=== PATIENT | male | born 1995 ===

== ENCOUNTER 2017-04-12 08:34 | Emergency (ER) | payer BC ==
[2017-04-12] MEDS ORDERED: Ibuprofen 800 MG Tab PO ONE (08:45)
--- NOTE | 2017-04-12 08:58 | EDM.PDOC ---
ED HPI GENERAL MEDICAL PROBLEM - General Chief Complaint: Lower Extremity Injury/Pain Stated Complaint: LEFT ANKLE PAIN FROM FALL Time Seen by Provider: 04/12/17 08:35 Source of Information: Reports: Patient History Limitations: Reports: No Limitations - History of Present Illness INITIAL COMMENTS - FREE TEXT/NARRATIVE: History of present illness: []Patient twisted his ankle at 2 AM in the morning with pain on the lateral side of his ankle. He denies any other injuries. Review of systems: As per history of present illness and below otherwise all systems reviewed and negative. Past medical history: As per history of present illness and as reviewed below otherwise noncontributory. Surgical history: As per history of present illness and as reviewed below otherwise noncontributory. Social history: No reported history of drug or alcohol abuse. Family history: As per history of present illness and as reviewed below otherwise noncontributory. Physical exam: General: Well developed, well nourished in NAD HEENT: Atraumatic, normocephalic, pupils reactive, negative for conjunctival pallor or scleral icterus, mucous membranes moist, throat clear, neck supple, nontender, trachea midline. Lungs: Clear to auscultation, breath sounds equal bilaterally, chest nontender. Heart: S1S2, regular, negative for clicks, rubs, or JVD. Abdomen: Soft, nondistended, nontender. Negative for masses or hepatosplenomegaly. Negative for costovertebral tenderness. Pelvis: Stable nontender. Genitourinary: Deferred. Rectal: Deferred. Extremities: Left ankle with swelling over the lateral malleolus that is tender to palpation with minimal range of motion no foot tenderness. Distal pulses are palpable sensations intact, negative for cords or calf pain. Neurovascular unremarkable. Neuro: Awake, alert, oriented. Cranial nerves II through XII unremarkable. Cerebellum unremarkable. Motor and sensory unremarkable throughout. Exam nonfocal. Diagnostics: []X-rays show fibula fracture Therapeutics: [] Impression: []Left fibular fracture Plan: []Ice, Motrin, elevate, tramadol for pain Follow-up orthopedics next available date Definitive disposition and diagnosis as appropriate pending reevaluation and review of above. Left Ankle Pain Score (Numeric/FACES): 5 - Related Data Allergies Allergy/AdvReac Type Severity Reaction Status Date / Time No Known Allergies Allergy Verified 04/12/17 08:49 Home Meds: Home Meds traMADol [Ultram] 50 mg PO Q8H PRN #16 tablet 04/12/17 [Rx] Past Medical History Other Gastrointestinal History: hernias with repair Genitourinary History: Reports: Renal Calculus Social & Family History - Family History Family Medical History: Noncontributory - Tobacco Use Years of Tobacco use: 10 Packs/Tins Daily: 1 - Caffeine Use Caffeine Use: Reports: Soda - Recreational Drug Use Recreational Drug Use: No Review of Systems - Review of Systems Review Of Systems: See Below (See history of present illness) ED EXAM, GENERAL - Physical Exam Exam: See Below (See history of present illness) Course - Vital Signs Last Recorded V/S: Last Vital Signs Temp 97.2 F 04/12/17 08:46 Pulse 111 H 04/12/17 08:46 Resp 18 04/12/17 08:46 BP 170/77 H 04/12/17 08:46 Pulse Ox 98 04/12/17 08:46 - Orders/Labs/Meds Orders: Active Orders 24 hr Category Date Time Status Splinting [RC] ASDIRECTED Care 04/12/17 09:16 Ordered Ankle Min 3V Lt [CR] Stat Exams 04/12/17 08:46 Taken Meds: Medications Discontinued Medications Generic Name Dose Route Start Last Admin Trade Name Freq PRN Reason Stop Dose Admin Ibuprofen 800 mg 04/12/17 08:45 04/12/17 09:17 Motrin PO 04/12/17 08:46 800 mg ONETIME ONE Administration Departure - Departure Time of Disposition: 09:17 Disposition: Home, Self-Care 01 Condition: Good Clinical Impression: Left fibular fracture Qualifiers: Encounter type: initial encounter Fibula location: distal Fracture type: closed Fracture morphology: unspecified fracture morphology Qualified Code(s): S82.832A - Other fracture of upper and lower end of left fibula, initial encounter for closed fracture - Discharge Information Prescriptions: traMADol [Ultram] 50 mg PO Q8H PRN #16 tablet PRN Reason: Pain Referrals: PCP,None [Primary Care Provider] - Forms: ED Department Discharge Additional Instructions: The following information is given to patients seen in the emergency department who are being discharged to home. This information is to outline your options for follow-up care. We provide all patients seen in our emergency department with a follow-up referral. The need for follow-up, as well as the timing and circumstances, are variable depending upon the specifics of your emergency department visit. If you don't have a primary care physician on staff, we will provide you with a referral. We always advise you to contact your personal physician following an emergency department visit to inform them of the circumstance of the visit and for follow-up with them and/or the need for any referrals to a consulting specialist. The emergency department will also refer you to a specialist when appropriate. This referral assures that you have the opportunity for follow-up care with a specialist. All of these measure are taken in an effort to provide you with optimal care, which includes your follow-up. Under all circumstances we always encourage you to contact your private physician who remains a resource for coordinating your care. When calling for follow-up care, please make the office aware that this follow-up is from your recent emergency room visit. If for any reason you are refused follow-up, please contact the [facility] Emergency Department at and asked to speak to the emergency department charge nurse. Tramadol for pain ice elevate Motrin follow-up with orthopedics [facility] - [facility] Professional Building [address] [place] [address], [address] [place] [address] - My Orders Last 24 Hours: My Active Orders 04/12/17 08:46 Ankle Min 3V Lt [CR] Stat 04/12/17 09:16 Splinting [RC] ASDIRECTED - Assessment/Plan Last 24 Hours: My Active Orders 04/12/17 08:46 Ankle Min 3V Lt [CR] Stat 04/12/17 09:16 Splinting [RC] ASDIRECTED
--- NOTE | 2017-04-14 15:38 | CR ---
EXAM DATE: 04/12/17 PATIENT'S AGE: 21 Patient: JEANNA GREGORY Facility: [place], [place] Site . Site : 1995 Study: XRay Extremity Left [id number] ankle-04/12/2017 9:01:12 AM Ordering Physician: Leandro Xavier Final Report: Indication: Left ankle pain. Technique: Three views of the left ankle. Comparison: None. Findings: Acute nondisplaced distal fibular fracture. Otherwise unremarkable. Impression: Acute nondisplaced distal fibular fracture. Dictated by Jefe Ignacio MD @ Apr 12 2017 9:14AM (Electronic Signature) Report Signed by Proxy. FRANK
== END 2017-04-12 09:40 | disposition home or self-care (01) ==
LOC: MW.ED 08:34
DX: S82.832A Other fracture of upper and lower end of left fibula, initial encounter for closed fracture (principal); X50.1XXA Overexertion from prolonged static or awkward postures, initial encounter
CPT/HCPCS: 29515; 73610; 99283; A9270

== ENCOUNTER 2017-04-14 10:43 | Emergency (ER) | payer BC ==
--- NOTE | 2017-04-14 11:15 | EDM.PDOC ---
ED HPI GENERAL MEDICAL PROBLEM - General Chief Complaint: Lower Extremity Injury/Pain Stated Complaint: LT ANKLE PAIN Time Seen by Provider: 04/14/17 10:46 Source of Information: Reports: Patient History Limitations: Reports: No Limitations - History of Present Illness INITIAL COMMENTS - FREE TEXT/NARRATIVE: History of present illness: []Patient was seen this past weekend in the ED with a fractured fibula was given tramadol which is not working for his pain. He is requesting a strong pain medicine Review of systems: As per history of present illness and below otherwise all systems reviewed and negative. Past medical history: As per history of present illness and as reviewed below otherwise noncontributory. Surgical history: As per history of present illness and as reviewed below otherwise noncontributory. Social history: No reported history of drug or alcohol abuse. Family history: As per history of present illness and as reviewed below otherwise noncontributory. Physical exam: General: Well developed, well nourished in NAD HEENT: Atraumatic, normocephalic, pupils reactive, negative for conjunctival pallor or scleral icterus, mucous membranes moist, throat clear, neck supple, nontender, trachea midline. Lungs: Clear to auscultation, breath sounds equal bilaterally, chest nontender. Heart: S1S2, regular, negative for clicks, rubs, or JVD. Abdomen: Soft, nondistended, nontender. Negative for masses or hepatosplenomegaly. Negative for costovertebral tenderness. Pelvis: Stable nontender. Genitourinary: Deferred. Rectal: Deferred. Extremities: Left lower extremity in a splint capillary refill brisk and toes sensation intact, negative for cords or calf pain. Neurovascular unremarkable. Neuro: Awake, alert, oriented. Cranial nerves II through XII unremarkable. Cerebellum unremarkable. Motor and sensory unremarkable throughout. Exam nonfocal. Diagnostics: [] Therapeutics: [] Impression: []Fibula fracture left Plan: []Hampton 5 07/28/19 tablets no refills. Follow-up with them as directed Definitive disposition and diagnosis as appropriate pending reevaluation and review of above. left leg Pain Score (Numeric/FACES): 8 - Related Data Allergies Allergy/AdvReac Type Severity Reaction Status Date / Time No Known Allergies Allergy Verified 04/14/17 10:52 Home Meds: Home Meds traMADol [Ultram] 50 mg PO Q8H PRN #16 tablet 04/12/17 [Rx] Past Medical History - Past Health History Medical/Surgical History: Denies Medical/Surgical History Other Gastrointestinal History: hernias with repair Genitourinary History: Reports: Renal Calculus - Past Surgical History GI Surgical History: Reports: Hernia, Inguinal Social & Family History - Family History Family Medical History: Noncontributory - Tobacco Use Years of Tobacco use: 10 Packs/Tins Daily: 1 - Caffeine Use Caffeine Use: Reports: Soda - Recreational Drug Use Recreational Drug Use: No Review of Systems - Review of Systems Review Of Systems: See Below (See history of present illness) ED EXAM, GENERAL - Physical Exam Exam: See Below (See history of present illness) Course - Vital Signs Last Recorded V/S: Last Vital Signs Temp 98.4 F 04/14/17 11:27 Pulse 88 04/14/17 11:27 Resp 18 04/14/17 11:27 BP 126/80 04/14/17 11:27 Pulse Ox 98 04/14/17 11:27 Departure - Departure Time of Disposition: 11:13 Disposition: Home, Self-Care 01 Condition: Good Clinical Impression: Inadequate pain control - Discharge Information Instructions: Tibial and Fibular Fracture, Adult Referrals: PCP,None [Primary Care Provider] - Forms: ED Department Discharge Additional Instructions: The following information is given to patients seen in the emergency department who are being discharged to home. This information is to outline your options for follow-up care. We provide all patients seen in our emergency department with a follow-up referral. The need for follow-up, as well as the timing and circumstances, are variable depending upon the specifics of your emergency department visit. If you don't have a primary care physician on staff, we will provide you with a referral. We always advise you to contact your personal physician following an emergency department visit to inform them of the circumstance of the visit and for follow-up with them and/or the need for any referrals to a consulting specialist. The emergency department will also refer you to a specialist when appropriate. This referral assures that you have the opportunity for follow-up care with a specialist. All of these measure are taken in an effort to provide you with optimal care, which includes your follow-up. Under all circumstances we always encourage you to contact your private physician who remains a resource for coordinating your care. When calling for follow-up care, please make the office aware that this follow-up is from your recent emergency room visit. If for any reason you are refused follow-up, please contact the [facility] Emergency Department at and asked to speak to the emergency department charge nurse. Hampton 5mg/325mg, #20 tablets, no refills were scription given. Follow-up with orthopedic as scheduled return if symptoms worsen or change elevate extremity above the level her heart as much as possible and continue to ice 20 minutes at a time. [facility] - Orthopedic [facility] Professional Building [address] [place] [address], [address] [place] [address]
== END 2017-04-14 11:29 | disposition home or self-care (01) ==
LOC: MW.ED 10:43
DX: S82.402A Unspecified fracture of shaft of left fibula, initial encounter for closed fracture (principal); X58.XXXA Exposure to other specified factors, initial encounter
CPT/HCPCS: 99282

== ENCOUNTER 2017-04-22 14:02 | Day surgery (SDC) | payer BC ==
[~2017-04-22 14:02] MED LIST: Acetaminophen/HYDROcodone 325-10 MG Tab PO PRN; Bupivacaine 0.25% 10 ML SDV ONE; HYDROmorphone 2 MG/ML Syringe ONE; Lactated Ringers 1,000 ML IV SCH; Lidocaine 2% 5 ML SDV ONE; Midazolam 1 MG/ML 2 ML SDV ONE; Propofol 200 MG/20 ML SDV ONE; ceFAZolin 2 GM in Premix Bag 1 BAG IV SCH; fentaNYL 100 MCG/2 ML SDV ONE
--- NOTE | 2017-04-22 18:20 | CR ---
EXAMINATION: Left ankle HISTORY: ORIF COMPARISON: 04/15/2017 TECHNIQUE: 5 fluoroscopic images provided FINDINGS/IMPRESSION: Fluoroscopic images demonstrate screw and plate fixation of the distal fibular fracture.
--- NOTE | 2017-05-06 14:14 | OR ---
SURGEON: China Way MD DATE OF PROCEDURE: 04/22/2017 PREOPERATIVE DIAGNOSIS: Left distal fibula fracture, unstable. POSTOPERATIVE DIAGNOSIS: Left distal fibula fracture, unstable. PROCEDURE: Open reduction and internal fixation of left distal fibula. GLOBE TESTER: David Leach PA-C. ANESTHESIA: General. ESTIMATED BLOOD LOSS: Less than 10 mL. TOURNIQUET TIME: 23 minutes. COMPLICATIONS: None. DVT PROPHYLAXIS: Not indicated. IMPLANTS USED: Iliana 7-hole 1/3rd semitubular plate with a combination of 3.5 mm nonlocking cortical and 4.0 mm cancellous screws. BRIEF HISTORY: Randal is a 21-year-old male who sustained a fracture of the left distal fibula. Stress x-rays obtained in clinic showed an unstable fracture pattern. At that time, I recommended surgical intervention. The risks and goals of the procedure were discussed with the patient and were documented preoperatively. He agreed to proceed. DESCRIPTION OF PROCEDURE: The patient was properly identified and brought to the operating room. He was transferred from the OR cart and placed on the operating table in supine position. General anesthesia was administered. After adequate anesthesia was obtained, a well-padded tourniquet was applied to the left lower extremity. The left lower extremity was then prepped in standard fashion using ChloraPrep solution. It was then sterilely draped. A time-out was performed to ensure correct site and procedure. Preoperative antibiotics were given. The surgical site had been marked preoperatively. An Esmarch was used to exsanguinate the left lower extremity and the tourniquet was inflated to 250 mmHg. A lateral incision was made centered over the distal fibula. The subcutaneous tissues were dissected. Care was taken to look for the superficial peroneal nerve and this was not encountered. The fracture was then identified. It was opened and copiously irrigated with saline solution to remove the fracture hematoma. A bone reduction clamp was then placed and the fracture was reduced without difficulty. A 3.5 mm nonlocking lag screw was then placed in standard lag fashion which provided good provisional fixation. Due to the obliquity of the fracture, I elected to proceed with a 7-hole plate. This was contoured to the bone. 3.5 mm cortical screws were used proximally and 4.0 mm cancellous screws were used distally. I was able to get good purchase into the bone. Final C-arm images confirmed acceptable reduction of the fracture. Live fluoroscopy was used to check the stability of the fracture with an external rotation stress view as well as using a bone hook to pull laterally. This showed no instability of the syndesmosis. The wound was then copiously irrigated with saline solution. The deep tissues were closed with 0 Vicryl. The tourniquet was deflated and no excess bleeding was noted. The subcutaneous tissues were closed with 2-0 Monocryl, and the skin was closed with quiana. Xeroform gauze was placed over the wound and a bulky dressing was applied. He was then placed in a well-padded posterior splint with medial and lateral stabilizing slabs. He was awakened from his anesthetic and transferred back to the operating room cart. He was brought to recovery room in stable condition. All needle and sponge counts were correct. ALEC / WILIAM /[id number]
== END 2017-04-23 11:00 | disposition home or self-care (01) ==
LOC: MW.SDS 14:02
PROVIDERS: ATTEND Orthopaedic Surgery
DX: S82.832A Other fracture of upper and lower end of left fibula, initial encounter for closed fracture (principal); F17.210 Nicotine dependence, cigarettes, uncomplicated
CPT/HCPCS: 27792; 76000; C1713; J1170; J2250; J3010; 01480; J2704